=== PATIENT | male | born 1965 | race Asian ===

== ENCOUNTER 2016-11-23 10:15 | Day surgery (SDC) | payer OTHER ==
[~2016-11-23] VITALS: Ht 162.6 cm; Wt 76.2 kg
[~2016-11-23 10:15] MED LIST: CEFAZOLIN 1 GM IVPB PREMIX 50 ML IV ONE
[2016-11-23] MEDS ORDERED: BUPIVACAINE /EPINEPHRINE/PF 0.25% 30 ML VIAL INJ ONE (10:16)
[2016-11-23] MEDS ORDERED: ONDANSETRON HCL 4 MG/2 ML VIAL IVP ONE (10:16)
[2016-11-23] MEDS ORDERED: BUPIVACAINE LIPOSOME/PF 266 MG/20 ML VIAL INFIL ONE (10:16)
[2016-11-23] MEDS ORDERED: NS IRRIG SOLN 1000 ML IR ONE (10:16)
[2016-11-23] MEDS ORDERED: MIDAZOLAM HCL 5 MG/ML VIAL (VERSED) IV ONE (10:16)
[2016-11-23] MEDS ORDERED: LR 1,000 ML IV.SOLN IV ONE (10:16)
[2016-11-23 10:55] VITALS: O2SAT 100
[2016-11-23] MEDS ORDERED: LR 1,000 ML IV SCH (14:22)
[2016-11-23] MEDS ORDERED: MORPHINE 4 MG/ML INJ. SYRINGE IVP PRN ×3 (14:30)
[2016-11-23] MEDS ORDERED: METOCLOPRAMIDE HCL 10 MG/2 ML VIAL IVP PRN (14:30)
[2016-11-23] MEDS ORDERED: HYDROmorphone 1 MG INJ. 1 MG/ML AMPUL IVP PRN (15:00)
[2016-11-23] MEDS ORDERED: HYDROcodone/ACETAMIN 5-325 MG TAB (NORCO/ VICODIN) PO PRN ×2 (15:00)
[2016-11-23] MEDS ORDERED: D5/0.45 NS 1,000 ML IV SCH (15:00)
[2016-11-23 18:16] VITALS: BP 148/105; PULSE 68; RESP 16
== END 2016-11-23 19:25 | disposition home or self-care (01) ==
LOC: SDS 10:15 → SMU 10:15 → SDS 19:25
PROVIDERS: ATTEND Colon & Rectal Surgery
DX: K64.4 Residual hemorrhoidal skin tags (principal); K64.8 Other hemorrhoids; I10 Essential (primary) hypertension; E78.5 Hyperlipidemia, unspecified; E11.9 Type 2 diabetes mellitus without complications; Z98.890 Other specified postprocedural states; K21.9 Gastro-esophageal reflux disease without esophagitis; E66.3 Overweight; M19.90 Unspecified osteoarthritis, unspecified site
CPT/HCPCS: 46260; 82962; 88304; C9290; J0690; J2250; J2405; J3490; J7120; J7030